=== PATIENT | male | born 1975 | race Caucasian/White ===

== ENCOUNTER 2019-10-25 19:02 | Emergency (ER) | payer BC, SELFPAY ==
--- NOTE | 2019-10-25 19:13 | ED.UPPEXIN ---
HPI - Extremity Injury (Upper) General Chief Complaint: Extremity Injury, Upper Stated Complaint: right middle finger injury Time Seen by Provider: 10/25/19 19:14 Source: patient and RN notes reviewed History of Present Illness HPI narrative: Patient is a 44-year-old male that presents the urgent care with complaints of a laceration to the right middle finger. Patient states that he reached out onto a drawer and sliced it on a shaving razor. Patient states that occurred approximately 30 minutes prior to arrival and he was unable to get the bleeding to stop. Patient is up-to-date on his tetanus shot. No other acute complaints. No acute distress noted. Patient read the plan of care. Related Data Allergies Allergy/AdvReac Type Severity Reaction Status Date / Time No Known Allergies Allergy Verified 10/25/19 19:20 Review of Systems Review of Systems: Narrative: CONSTITUTIONAL: Denies fever, chills, or sweats. EYES: Denies visual changes, redness, or discharge. ENT: Denies rhinorrhea, congestion, sore throat, or otalgia. CARDIOVASCULAR: Denies chest pain, palpitations, or edema. RESPIRATORY: Denies cough or dyspnea. GASTROINTESTINAL: Denies abdominal pain, nausea, vomiting, or diarrhea. GENITOURINARY: Denies dysuria or hematuria. SKIN: Reports of a laceration to the right middle finger MUSCULOSKELETAL: Denies back pain, joint pain, or myalgia. NEUROLOGIC: Denies headache, numbness, or weakness. All other systems reviewed are negative, except as documented in HPI. PMFSH Comments At the time of my signature, I reviewed and agree with the nursing past medical, surgical, social, and family history. There is no relevant family history pertinent to the patient complaint. Exam Narrative: Exam Narrative: GENERAL: This is a well-nourished, well-developed patient, in no apparent distress. HEAD: normocephalic, atraumatic. EYES: PERRL. Sclera clear/white. Vision is grossly intact. EARS: External ears normal NOSE: External nose normal with no obvious nasal discharge THROAT: Mucous membranes moist NECK: Neck supple SKIN: Approximately 1 cm diameter circular avulsion to the ulnar tip of the right middle finger without nail involvement NEURO: awake, alert, and oriented to person, place and time. There were no obvious focal neurologic abnormalities. EXTREMITIES: Right upper extremity capillary refill less than 2 seconds with range of motion within normal limits. Positive strong right radial pulse Course Vital Signs Vital signs: Vital Signs Temperature 97.8 F 10/25/19 19:22 Pulse Rate 66 10/25/19 19:22 Respiratory Rate 18 10/25/19 19:22 Blood Pressure 124/74 10/25/19 19:22 Pulse Oximetry 98 10/25/19 19:22 Temperature 97.8 F 10/25/19 19:22 Pulse Rate 66 10/25/19 19:22 Respiratory Rate 18 10/25/19 19:22 Blood Pressure 124/74 10/25/19 19:22 Pulse Oximetry 98 10/25/19 19:22 Reviewed Procedures Laceration Laceration 1: Site: upper extremity (Right middle digit) Side (If applicable): right Description: other (Circular avulsion) ====== Skin Level ====== Skin layer closed with: other (Surgery gel) ====== Subcutaneous Layer ====== ====== Muscle Layer ====== ====== Tendon Layer ====== Dressin cm diameter avulsion to the ulnar tip of the right middle finger without nail involvement. Unable to suture due to type of injury, missing skin layer. Used Surgicel to control the bleeding. Bleeding controlled with Surgicel. Patient tolerated well. Cleansed with soak of Technicare and normal saline prior to surgery gel placement. Telfa and tube gauze placed over the right middle finger. Patient tolerated well. MDM - Extremity Injury (Upper) MDM Narrative Medical decision making narrative: Advised the patient not to remove the tube gauze or Surgicel before the 2 to 3-day peroid. Surgery gel needs to be soaked off within 2 to 3 days. Clot should be formed a
[2019-10-25 19:22] VITALS: BP 124/74; PULSE 66; RESP 18; TEMP 36.6; O2SAT 98
== END 2019-10-25 19:50 | disposition home or self-care (01) ==
PROVIDERS: Emergency Provider Nurse Practitioner Family
DX: S61.212A Laceration without foreign body of right middle finger without damage to nail, initial encounter (principal); W26.8XXA Contact with other sharp object(s), not elsewhere classified, initial encounter
CPT/HCPCS: 12001; 99212; G0463

== ENCOUNTER 2021-02-07 11:03 | Observation (INO) | payer BC, SELFPAY ==
--- NOTE | ~2021-02-07 | XR_ITS ---
EXAMINATION: [id number] INDICATION: Right rib swelling TECHNIQUE: A frontal view of the chest and 3 views of the right ribs were obtained on five radiograph s. COMPARISON: None. FINDINGS: The lungs are free of acute opacities. There is no pleural effusion or pneumothorax. The ca rdiomediastinal silhouette is normal. The visualized bones and soft tissues are unremarkable. No disp laced rib fracture is identified. IMPRESSION: 1. No acute cardiopulmonary abnormality or evidence of displaced rib fracture. Reviewed, dictated and finalized at location A.
--- NOTE | ~2021-02-07 | US_ITS ---
EXAMINATION: US soft tissue abdomen DATE: 02/08/2021 10:21 INDICATION: Right flank swelling TECHNIQUE: Multiple grayscale and Doppler ultrasound images of the region of concern at the right fla nk were obtained. COMPARISON: None FINDINGS: Subtle flattened ovoid mass in the deep subcutaneous tissues at the region of concern which measures approximately 6.9 x 6.4 x 1.6 cm and with similar echogenicity and internal echogenic linear striatio ns at the surrounding subcutaneous fat. No other abnormal masses or fluid collections identified. IMPRESSION: 1. 6.9 x 6.4 x 1.6 cm and ovoid mass in the deep subcutaneous tissues at the region of concern with a ppearance consistent with and statistically most likely to represent a lipoma. If clinically indicate d CT or MRI could be obtained for confirmation. Reviewed, dictated and finalized at location A. IMPRESSION: 1. 6.9 x 6.4 x 1.6 cm and ovoid mass in the deep subcutaneous tissues at the re gion of concern with appearance consistent with and statistically most likely t o represent a lipoma. If clinically indicated CT or MRI could be obtained for c onfirmation.
[2021-02-07 11:12] VITALS: BP 145/95; PULSE 62; RESP 16; TEMP 35.7; O2SAT 99
[2021-02-07 12:30] LABS: Add Urine Microscopic? NO; Appearance Urine Clear (Clear); Basophils Absolute Auto 0.1 K/mm3 (0.0-0.1); Basophils Percent Auto 0.8 % (0.2-1.2); Bilirubin Urine Negative (Negative); Blood Urine Negative (Negative); Color Urine Straw (Yellow); Eosinophils Absolute Auto 0.1 K/mm3 (0-0.3); Eosinophils Percent Auto 0.7 % (0-4.4); Glucose Urine UA Negative (Negative); Hematocrit 44.1 % (42.0-52.0); Hemoglobin 15.4 g/dL (14.0-18.0); Immature Granulocyte Absolute 0.02 K/mm3 (0.00-0.031); Immature Granulocyte Percent A 0.3 % (0-0.5); Ketones Urine Negative (Negative); Leukocyte Esterase Ur Negative LEU/UL (Negative); Lymphocytes Absolute Auto 2.58 K/mm3 (0.9-3.2); Lymphocytes Percent Auto 35.1 % (18.3-44.2); Mean Corpuscular HGB Conc 34.9 g/dl (32-36); Mean Corpuscular Hemoglobin 30.4 pg (26-34); Mean Platelet Volume 10.1 fl (7.4-10.4); Monocytes Absolute Auto 0.6 K/mm3 (0.1-0.6); Monocytes Percent Auto 7.6 % (2.6-8.5); Neutrophils Absolute Auto 4.1 K/mm3 (1.3-6.7); Neutrophils Percent Auto 55.5 % (45.5-73.1); Nitrate Urine Negative (Negative); Platelet Count Result 241 k/mm3 (150-375); Protein Urine Negative (Negative); Red Blood Count 5.07 M/mm3 (4.6-6.20); Red Cell Distribution Width 12.4 % (11.5-14.5); Specific Grav Ur 1.011 (1.001-1.035); Urobilinogen Urine Negative mg/dL (<2.0); White Blood Count 7.4 K/mm3 (4.5-10.0)
--- NOTE | 2021-02-07 12:37 | ED.GENADULT ---
HPI - General Adult General Chief complaint: Back Pain/Injury Stated complaint: back pain Time Seen by Provider: 02/07/21 11:42 Source: patient and RN notes reviewed Mode of arrival: ambulatory Limitations: no limitations History of Present Illness HPI narrative: This is 45 year old male who presents for evaluation of bilateral arm pain. He states that he just started lifting weights on Thursday, and he noticed that he has had bilateral bicep soreness since Thursday. He has pain with extension of his arms. He takes ibuprofen daily for his body aches. He also noticed lump to his right flank on Thursday but he states it is not painful. He denies nausea, vomiting, fever, chills, shortness of breath. He has not noticed that his urine is darker than normal. Related Data Home Medications Medication Instructions Recorded Confirmed No Home Medications 02/07/21 02/07/21 Allergies Allergy/AdvReac Type Severity Reaction Status Date / Time No Known Allergies Allergy Verified 10/25/19 19:20 Review of Systems Review of Systems: All systems reviewed & are unremarkable except as noted in HPI and below PMFSH Past Medical History Medical History (Updated 02/07/21 @ 14:33 by Nellie Frye PA-C) Patient denies medical problems Surgical History Surgical History No pertinent past surgical history Family History Family History Other No significant family history Social History Social History (Updated 02/07/21 @ 14:30 by Nellie Frye PA-C) Social History: The patient lives in [place] with his , son, and his mother. 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 Consumes alcohol socially and in moderation. No illicit substance use. He designates his is his surrogate decision-maker. CODE STATUS: Full code. Smoking status: Never smoker Alcohol intake: never Substance use: never Spiritual care concerns: No Exam Const: General: no acute distress and alert Orientation/consciousness: patient oriented x3 Eyes: EOM: EOMs intact bilaterally Resp: Effort & Inspection: normal respiratory effort and no retractions Auscultation: clear to auscultation bilaterally Cardio: Rate: regular rate Rhythm: regular rhythm Heart sounds: no murmurs GI: GI Palp: Yes Soft to palpation, No Tenderness to palpation present (GI) and No Guarding due to palpation present (GI) Auscultation: normal bowel sounds Back/Spine/Pelvis: Other: right mid lateral back with lump that is firm, no tenderness, no fluctuance, no erythema. Skin: General skin exam: normal color Neuro: General: patient oriented x3, moves all extremities and CN's II-XI intact bilaterally Extrem: Other: pain with extension of bilateral arms at biceps. no swelling, no erythema, strong bilateral radial pulses. Psych: Mental Status: mental status grossly normal Affect: normal affect Course Reevaluation(s) Reevaluation #1: I have discussed with patient that he will need to be admitted for IV hydration for his rhabdomyolysis. Date: 02/07/21 Time: 13:34 Consultations Consultation #1: Nellie Melva accepts patient to hospitalist service. Date: 02/07/21 Time: 13:34 Vital Signs Vital signs: Vital Signs Temperature 96.3 F L 02/07/21 11:12 Pulse Rate 62 02/07/21 11:12 Respiratory Rate 16 02/07/21 11:12 Blood Pressure 145/95 H 02/07/21 11:12 Pulse Oximetry 99 02/07/21 11:12 Temperature 96.9 F L 02/07/21 20:20 Pulse Rate 65 02/07/21 20:20 Respiratory Rate 16 02/07/21 20:20 Blood Pressure 133/70 02/07/21 20:20 Pulse Oximetry 96 02/07/21 20:20 Medical Decision Making Vital Signs Vital Signs: Vital Signs Temperature 96.3 F L 02/07/21 11:12 Pulse Rate 62 02/07/21 11:12 Respiratory Rate 16 02/07/21 11:12 Blood Pressure 145/95 H
[2021-02-07 12:41] LABS: Alanine Aminotransferase 46 U/L (4-50); Albumin Level 4.5 g/dL (3.5-5.1); Alkaline Phosphatase 55 U/L (38-126); Anion Gap 6 mmol/L (8-16); Aspartate Amino Transferase 153 U/L (17-59); Bilirubin,Total 0.6 mg/dL (0.2-1.3); Blood Urea Nitrogen 15 mg/dL (9-20); Carbon Dioxide 29 mmol/L (22-30); Chloride 102 mmol/L (98-107); Estimated CRCL calculation 130 ml/min; Estimated Glomerular Filt Rate > 60; Glucose 91 mg/dL (65-110); Potassium 4.4 mmol/L (3.4-5.0); Sodium 137 mmol/L (137-145)
[2021-02-07 13:02] LABS: Creatine Kinase 9163 U/L (55-170)
--- NOTE | 2021-02-07 13:45 | PM.IMHP ---
H&P: HPI History of Present Illness Date/Time: 02/07/21 13:45 Chief Complaint: Lump on right side. Narrative: This is a previously healthy 45-year-old male who presented to the emergency department earlier today via private vehicle from home for evaluation of a lump that he noticed on the right flank/back. He began a new weightlifting regimen on Thursday and noticed that his biceps were extremely sore on Thursday to the point where he was having difficulties extending his arms out due to the discomfort. On Thursday he also noticed a lump on the right flank/back though that has not necessarily been painful. He has been taking ibuprofen daily for the aches with some benefit. In the emergency department today he was found to have a CK of greater than 9000 and he is being admitted in this setting for further treatment of rhabdomyolysis. He denies lightheadedness, dizziness, and decrease in urine output. He has not noticed any bruising around the lump in the right flank/back region. No focal weakness or paresthesias. Review of Systems Review of Systems: 12 systems were reviewed with pertinent positives and negatives as per HPI. No fever, chills, sweats. No syncope or near syncope. He denies recent cold or flu symptoms. No exposure to those positive for COVID-19. He denies chest pain shortness of breath. No nausea, vomiting, or diarrhea. No dysuria, hematuria, or change in urine color except as documented, all other systems were reviewed and are negative. [facility] Past Medical History Medical History (Updated 02/07/21 @ 14:33 by Nellie Frye PA-C) Patient denies medical problems Surgical History Surgical History No pertinent past surgical history Family History Family History (Updated 02/07/21 @ 14:30 by Nellie Frye PA-C) Other No significant family history Social History Social History (Updated 02/07/21 @ 14:30 by Nellie Frye PA-C) Social History: The patient lives in [place] with his , son, and his mother. 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 Consumes alcohol socially and in moderation. No illicit substance use. He designates his is his surrogate decision-maker. CODE STATUS: Full code. Meds Home Medications and Allergies Allergies Allergy/AdvReac Type Severity Reaction Status Date / Time No Known Allergies Allergy Verified 10/25/19 19:20 Vital Signs Vital Signs - 24 hr 02/07/21 11:12 Temperature 96.3 F L Pulse Rate 62 Respiratory Rate 16 Blood Pressure 145/95 H Pulse Oximetry 99 Exam Narrative: General: Well-developed male sitting up in bed no distress. Weight: 117.9 kg. BMI: 31.6 HEENT: Normocephalic, atraumatic. PERRL, EOMI. Sclerae anicteric. Oral mucosa moist. Neck: Supple. Respiratory: Lungs are clear to auscultation bilaterally. Cardiovascular: Regular rate and rhythm with S1-S2. Occasional ectopy Gastrointestinal: Abdomen is soft, nontender, and nondistended with positive bowel sounds. Skin: Warm and dry. No rash or lesions on limited exam. Extremities: No cyanosis, clubbing, or edema. Radial and pedal pulses intact. Musculoskeletal: No tenderness to palpation of the upper extremities. He does complain of some mild discomfort when extending the arms at the bicep. There is swelling over the right latissimus dorsi just under the scapula without bruising or discomfort on palpation. Neurological: Alert. Cranial nerves 2-12 are grossly intact. No gross focal deficits to casual conversation. Psychiatric: Pleasant and cooperative with normal mood and affect. Judgment and insight intact. H&P: Results Labs Labs: Short CBC 02/07/21 Range/Units 12:19 WBC 7.4 (4.5-10.0) K/mm3 Hgb 15.4 (14.0-18.0) g/dL Hct 44.1 (42.0-52.0) % Plt Count 241 (150-375) k/mm3 [facility] 02/07/21 12:19 Sodium 137 Potassium 4.4 Chloride 102 Carbon Dioxide 29
[2021-02-07] MEDS: SODIUM CHLORIDE 0.9% IV 1,000 ML 999 ML IV CONT ×2 (14:04)
[2021-02-07 14:38] VITALS: BP 134/88; PULSE 55; RESP 20; TEMP 35.7; O2SAT 100
[2021-02-07] MEDS: SODIUM CHLORIDE 0.9% IV 1,000 ML 200 ML IV CONT ×2 (15:36→20:21)
[2021-02-07 20:20] VITALS: BP 133/70; PULSE 65; RESP 16; TEMP 36.1; O2SAT 96
[2021-02-07 21:02] LABS: Creatine Kinase 9668 U/L (55-170)
[2021-02-08] MEDS: SODIUM CHLORIDE 0.9% IV 1,000 ML 200 ML IV CONT ×5 (01:19→22:40)
[2021-02-08 05:51] VITALS: BP 132/92; PULSE 54; RESP 16; TEMP 35.8; O2SAT 97
[2021-02-08 07:00] LABS: Alanine Aminotransferase 42 U/L (4-50); Albumin Level 3.4 g/dL (3.5-5.1); Alkaline Phosphatase 48 U/L (38-126); Anion Gap 4 mmol/L (8-16); Aspartate Amino Transferase 130 U/L (17-59); Bilirubin,Total 0.3 mg/dL (0.2-1.3); Blood Urea Nitrogen 10 mg/dL (9-20); Carbon Dioxide 26 mmol/L (22-30); Chloride 105 mmol/L (98-107); Estimated CRCL calculation 145 ml/min; Estimated Glomerular Filt Rate > 60; Glucose 85 mg/dL (65-110); Potassium 4.6 mmol/L (3.4-5.0); Sodium 135 mmol/L (137-145)
[2021-02-08 07:27] LABS: Creatine Kinase 8044 U/L (55-170)
[2021-02-08 08:00] VITALS: PULSE 54; RESP 16; O2SAT 97
[2021-02-08 14:27] VITALS: BP 120/88; PULSE 65; RESP 18; TEMP 35.9; O2SAT 98
--- NOTE | 2021-02-08 16:28 | PM.IMPN ---
Progress Note: A&P Assessment and Plan (1) Rhabdomyolysis: Code(s): M62.82 - Rhabdomyolysis Status: Acute Assessment and Plan: Related to exertion after starting a new weightlifting regimen earlier this week. Continue aggressive IV fluid rehydration. Trend CK. 02/08 patient with rhabdomyolysis upon arrival his CK levels were 9000 and this morning is 8000 patient being hydrated, his kidney function remains stable, patient states the muscle pain is improving, patient also has developed a lump on his right upper back ultrasound showed most likely lipoma. patient denies any abdominal pain nausea or vomiting fever or chills, patient instructed to activity as tolerated, will continue to hydrate the patient and monitor CK level. (2) Elevated blood pressure reading: Code(s): R03.0 - Elevated blood-pressure reading, without diagnosis of hypertension Status: Acute Assessment and Plan: BP on arrival to the emergency department was 145/95. Continue to monitor for now to see if this is a trend or isolated. (3) Strain of latissimus dorsi muscle: Code(s): S29.012A - Strain of muscle and tendon of back wall of thorax, initial encounter Status: Acute Assessment and Plan: No pain or bruising noted to the area. Discussed the need for rest until this muscle is healed. Subjective Date/time seen: 02/08/21 16:28 Chief Complaint: Lump on right side. Narrative: This is a previously healthy 45-year-old male who presented to the emergency department earlier today via private vehicle from home for evaluation of a lump that he noticed on the right flank/back. He began a new weightlifting regimen on Thursday and noticed that his biceps were extremely sore on Thursday to the point where he was having difficulties extending his arms out due to the discomfort. On Thursday he also noticed a lump on the right flank/back though that has not necessarily been painful. He has been taking ibuprofen daily for the aches with some benefit. In the emergency department today he was found to have a CK of greater than 9000 and he is being admitted in this setting for further treatment of rhabdomyolysis. He denies lightheadedness, dizziness, and decrease in urine output. He has not noticed any bruising around the lump in the right flank/back region. No focal weakness or paresthesias. 02/08 patient with rhabdomyolysis upon arrival his CK levels were 9000 and this morning is 8000 patient being hydrated, his kidney function remains stable, patient states the muscle pain is improving, patient also has developed a lump on his right upper back ultrasound showed most likely lipoma. patient denies any abdominal pain nausea or vomiting fever or chills, patient instructed to activity as tolerated, will continue to hydrate the patient and monitor CK level. Review of Systems Review of Systems: All systems reviewed & are unremarkable except as noted in HPI and below Exam Narrative: Patient is comfortable, NAD HEENT: eyes are clear and none icteric LUNGS:CTA HEART: RR S1S2 ABD: BS+, Soft and nontender Lower extremities: no edema SKIN: nonjaundiced, right upper back about 4-5 cm soft lump, moveable, no erythema or tenderness Neuro: grossly intact. Objective Data Vital Signs Vital Signs: Vital Signs - 24 hr 02/07/21 20:20 02/08/21 05:51 02/08/21 08:00 Temperature 96.9 F L 96.4 F L Pulse Rate 65 54 L 54 L Respiratory Rate 16 16 16 Blood Pressure 133/70 132/92 H Pulse Oximetry 96 97 97 02/08/21 14:27 Temperature 96.6 F L Pulse Rate 65 Respiratory Rate 18 Blood Pressure 120/88 Pulse Oximetry 98 Intake/Output Intake/Output: Intake & Output 02/05/21 02/06/21 02/07/21 02/08/21 23:59 23:59 23:59 23:59 Intake Total 3790 3480 Output Total 300 1850 Balance 3490 1630 Meds/Results Medications: Active Medications Generic Name Dose Route Start Last Admin Trade Name Freq PRN Reason Sto
[2021-02-08 22:00] VITALS: BP 149/85; PULSE 66; RESP 20; TEMP 36.7; O2SAT 98
[2021-02-09] MEDS: SODIUM CHLORIDE 0.9% IV 1,000 ML 200 ML IV CONT ×4 (04:32→19:00)
[2021-02-09 06:00] VITALS: BP 129/82; PULSE 62; RESP 18; TEMP 36.1; O2SAT 97
[2021-02-09 06:27] LABS: Alanine Aminotransferase 53 U/L (4-50); Albumin Level 3.3 g/dL (3.5-5.1); Alkaline Phosphatase 43 U/L (38-126); Anion Gap 5 mmol/L (8-16); Aspartate Amino Transferase 135 U/L (17-59); Bilirubin,Total 0.2 mg/dL (0.2-1.3); Blood Urea Nitrogen 8 mg/dL (9-20); Calcium 7.9 mg/dL (8.4-10.2); Carbon Dioxide 24 mmol/L (22-30); Chloride 106 mmol/L (98-107); Estimated CRCL calculation 165 ml/min; Estimated Glomerular Filt Rate > 60; Glucose 93 mg/dL (65-110); Potassium 4.1 mmol/L (3.4-5.0); Sodium 135 mmol/L (137-145)
[2021-02-09 07:28] LABS: Creatine Kinase 6683 U/L (55-170)
[2021-02-09 11:18] VITALS: O2SAT 96
--- NOTE | 2021-02-09 13:11 | PM.IMPN ---
Progress Note: A&P Assessment and Plan (1) Rhabdomyolysis: Code(s): M62.82 - Rhabdomyolysis Status: Acute Assessment and Plan: Related to exertion after starting a new weightlifting regimen earlier this week. Continue aggressive IV fluid rehydration. Trend CK. 02/08 patient with rhabdomyolysis upon arrival his CK levels were 9000 and this morning is 8000 patient being hydrated, his kidney function remains stable, patient states the muscle pain is improving, patient also has developed a lump on his right upper back ultrasound showed most likely lipoma. patient denies any abdominal pain nausea or vomiting fever or chills, patient instructed to activity as tolerated, will continue to hydrate the patient and monitor CK level. 02/09 CK 6683. Likely home 02/10. (2) Elevated blood pressure reading: Code(s): R03.0 - Elevated blood-pressure reading, without diagnosis of hypertension Status: Acute Assessment and Plan: BP on arrival to the emergency department was 145/95. 02/09 129/82 Continue to monitor. (3) Strain of latissimus dorsi muscle: Code(s): S29.012A - Strain of muscle and tendon of back wall of thorax, initial encounter Status: Acute Assessment and Plan: No pain or bruising noted to the area. Rest until this muscle is healed. Subjective Date/time seen: 02/09/21 13:11 Interval history: Admitted 02/08 with mickie after starting new weight training regimen. 02/09 visit: Denied muscle pain, chest pain, sob, gi/gu issues. Wants to go home. Review of Systems Review of Systems: All systems reviewed & are unremarkable except as noted in HPI and below Exam Narrative: Patient is comfortable, NAD HEENT: eyes are clear and none icteric LUNGS:CTA HEART: RR S1S2 ABD: BS+, Soft and nontender Lower extremities: no edema SKIN: nonjaundiced, right upper back about 4-5 cm soft lump, moveable, no erythema or tenderness Neuro: grossly intact. Objective Data Vital Signs Vital Signs: Vital Signs - 24 hr 02/08/21 14:27 02/08/21 22:00 02/09/21 06:00 Temperature 96.6 F L 98.0 F 96.9 F L Pulse Rate 65 66 62 Respiratory Rate 18 20 18 Blood Pressure 120/88 149/85 H 129/82 Pulse Oximetry 98 98 97 02/09/21 11:18 Temperature Pulse Rate Respiratory Rate Blood Pressure Pulse Oximetry 96 Intake/Output Intake/Output: Intake & Output 02/06/21 02/07/21 02/08/21 02/09/21 23:59 23:59 23:59 23:59 Intake Total 3790 6270 3580 Output Total 300 1850 1400 Balance 3490 4420 2180 Meds/Results Medications: Active Medications Generic Name Dose Route Start Last Admin Trade Name Freq PRN Reason Stop Dose Admin Sodium Chloride 1,000 mls @ 200 mls/hr 02/07/21 13:30 02/09/21 08:50 Normal Saline Iv IV CONT 200 mls/hr .Q5H LASHELL Administration Ondansetron HCl 4 mg 02/07/21 13:28 Ondansetron Inj 4 Mg/2 Ml Vial IV PUSH Q4H PRN Nausea Radiology Results: ITS Impressions Ribs w/Chest X-Ray 02/07/21 13:15 IMPRESSION: 1. No acute cardiopulmonary abnormality or evidence of displaced rib fracture. Soft Tissue Ultrasound 02/08/21 12:41 IMPRESSION: 1. 6.9 x 6.4 x 1.6 cm and ovoid mass in the deep subcutaneous tissues at the region of concern with appearance consistent with and statistically most likely to represent a lipoma. If clinically indicated CT or MRI could be obtained for confirmation. Labs Labs: Laboratory Results - last 24 hr 02/09/21 06:04 Sodium 135 L Potassium 4.1 Chloride 106 Carbon Dioxide 24 Anion Gap 5 L BUN 8 L Creatinine 0.70 Estim Creat Clear Calc 165 Estimated GFR > 60 Glucose 93 Calcium 7.9 L Total Bilirubin 0.2 AST 135 H ALT 53 H Alkaline Phosphatase 43 Total Creatine Kinase 6683 H Total Protein 6.0 L Albumin 3.3 L Quality VTE Prophylaxis VTE prophylaxis: mechanical ordered
[2021-02-09 14:00] VITALS: BP 144/88; PULSE 62; RESP 20; TEMP 36.7; O2SAT 98
[2021-02-09 20:00] VITALS: PULSE 62; RESP 20; O2SAT 98
[2021-02-09 21:04] VITALS: BP 139/83; PULSE 59; RESP 16; TEMP 36.7; O2SAT 98
[2021-02-09] MEDS: ACETAMINOPHEN 325 MG TABLET 650 MG PO (21:51)
[2021-02-10] MEDS: SODIUM CHLORIDE 0.9% IV 1,000 ML 200 ML IV CONT ×2 (05:13)
[2021-02-10 05:17] VITALS: BP 120/80; PULSE 51; RESP 16; TEMP 35.8; O2SAT 96
[2021-02-10 07:27] LABS: Alanine Aminotransferase 55 U/L (4-50); Albumin Level 3.4 g/dL (3.5-5.1); Alkaline Phosphatase 45 U/L (38-126); Anion Gap 4 mmol/L (8-16); Aspartate Amino Transferase 91 U/L (17-59); Bilirubin,Total 0.5 mg/dL (0.2-1.3); Blood Urea Nitrogen 10 mg/dL (9-20); Calcium 8.3 mg/dL (8.4-10.2); Carbon Dioxide 25 mmol/L (22-30); Chloride 109 mmol/L (98-107); Creatine Kinase 3141 U/L (55-170); Estimated CRCL calculation 130 ml/min; Estimated Glomerular Filt Rate > 60; Glucose 84 mg/dL (65-110); Potassium 4.4 mmol/L (3.4-5.0); Sodium 138 mmol/L (137-145)
[2021-02-10 07:50] LABS: Hepatitis B Surface Antigen Negative (Negative)
[2021-02-10 07:56] LABS: HAV RESULT Negative (Negative); Hepatitis B Core IgM Result Negative (Negative)
--- NOTE | 2021-02-10 09:16 | PM.DS ---
DS: Admitting Diagnosis Admitting Diagnosis rhabdomyolysis DS: Discharge Diagnosis Discharge Diagnosis (1) Rhabdomyolysis: Code(s): M62.82 - Rhabdomyolysis Status: Acute Assessment and Plan: Related to exertion after starting a new weightlifting regimen earlier this week. Continue aggressive IV fluid rehydration. Trend CK. 02/08 patient with rhabdomyolysis upon arrival his CK levels were 9000 and this morning is 8000 patient being hydrated, his kidney function remains stable, patient states the muscle pain is improving, patient also has developed a lump on his right upper back ultrasound showed most likely lipoma. patient denies any abdominal pain nausea or vomiting fever or chills, patient instructed to activity as tolerated, will continue to hydrate the patient and monitor CK level. 02/09 CK 6683. Likely home 02/10. 02/10 CK 3141 w/o sx's. Home. (2) Elevated blood pressure reading: Code(s): R03.0 - Elevated blood-pressure reading, without diagnosis of hypertension Status: Acute Assessment and Plan: BP on arrival to the emergency department was 145/95. 02/09 129/82 Continue to monitor. (3) Strain of latissimus dorsi muscle: Code(s): S29.012A - Strain of muscle and tendon of back wall of thorax, initial encounter Status: Acute Assessment and Plan: No pain or bruising noted to the area. Rest until this muscle is healed. DS: Summary Hospital Course Reason for hospitalization: rhabdomyolysis Hospital Course: Admitted with muscle soreness. CK elevated. LFT's also increased. Sx's resolved and CK improved with iVF and rest. Hepatitis screen negative. Status at Discharge Functional status at discharge: independent ambulation Overall status at discharge: patient is progressing back to baseline Time Spent with Patient Time attestation: Total time spent providing and/or coordinating discharge services: Exam Narrative: Patient is comfortable, NAD HEENT: eyes are clear and none icteric LUNGS:CTA HEART: RR S1S2 ABD: BS+, Soft and nontender Lower extremities: no edema SKIN: nonjaundiced, right upper back about 4-5 cm soft lump, moveable, no erythema or tenderness Neuro: grossly intact. DS: Data Data Completed and Pending Labs on day of discharge: Labs from last 24 hours 02/10/21 02/10/21 06:45 06:45 Sodium 138 Potassium 4.4 Chloride 109 H Carbon Dioxide 25 Anion Gap 4 L BUN 10 Creatinine 0.90 Estim Creat Clear Calc 130 Estimated GFR > 60 Glucose 84 Calcium 8.3 L Total Bilirubin 0.5 AST 91 H ALT 55 H Alkaline Phosphatase 45 Total Creatine Kinase 3141 H Total Protein 6.0 L Albumin 3.4 L Hepatitis A IgM Ab Negative Hep Bs Antigen Negative Hep B Core IgM Ab Negative Discharge Plan Discharge Discharging Clinician: Bharathi Sarkar Patient Disposition: Home, Self-Care Activity: no straining Diet: regular Discharge Instructions: Do only walking and gentle stretching for exercise until released by PCP. Do not drink alcohol until released by PCP. Patient Instructions: Pain Management (DC) Stand Alone Forms: General Discharge Information Follow-up/Referrals: Ramon,Rah Koch MD [Primary Care Provider] - 1 Week Discharge Medications: New acetaminophen [Mapap (acetaminophen)] 325 mg Tablet 650 mg PO Q6H PRN (Reason: Mild Pain (1-3) Or Fever) Qty: 0 RF: 0 No Action No Home Medications RF: 0 Other Ambulatory Orders: Creatine Kinase (Routine) Timeframe: 2 Days Location: Determined by Patient Ordered By: Bharathi Sarkar Comprehensive Metabolic Panel (Routine) Timeframe: 2 Days Location: Determined by Patient Ordered By: Bharathi Sarkar Date of admission: 02/07/21 13:28 Primary Care Provider: Ramon,Rah Koch Admitting Provider: Raquel Ga Attending physician on admission: Raquel Ga Condition: Stable
== END 2021-02-10 09:45 | disposition home or self-care (01) ==
LOC: ANHED 13:35 → ANH3MED 19:33
PROVIDERS: Family Medicine; Physician Assistant; Admitting Provider Internal Medicine; Emergency Provider General Practice; PCP Family Medicine; Visit Provider Internal Medicine
DX: M62.82 Rhabdomyolysis (principal); R03.0 Elevated blood-pressure reading, without diagnosis of hypertension; S29.012A Strain of muscle and tendon of back wall of thorax, initial encounter; R22.2 Localized swelling, mass and lump, trunk; X50.0XXA Overexertion from strenuous movement or load, initial encounter; Y93.B9 Activity, other involving muscle strengthening exercises
CPT/HCPCS: 36415; 71101; 76705; 80053; 81003; 82550; 85025; 86705; 86709; 87340; 96360; 96361; 99285; A9270; G0378; J7030

== ENCOUNTER 2021-02-12 11:36 | Outpatient (CLI) | payer BC, SELFPAY ==
[2021-02-12 12:07] LABS: Alanine Aminotransferase 55 U/L (4-50); Albumin Level 4.2 g/dL (3.5-5.1); Alkaline Phosphatase 49 U/L (38-126); Anion Gap 6 mmol/L (8-16); Aspartate Amino Transferase 58 U/L (17-59); Bilirubin,Total 0.7 mg/dL (0.2-1.3); Blood Urea Nitrogen 12 mg/dL (9-20); Calcium 9.1 mg/dL (8.4-10.2); Carbon Dioxide 29 mmol/L (22-30); Chloride 104 mmol/L (98-107); Creatine Kinase 901 U/L (55-170); Estimated Glomerular Filt Rate > 60; Glucose 84 mg/dL (65-110); Sodium 139 mmol/L (137-145)
== END 2021-02-12 11:37 | disposition home or self-care (01) ==
PROVIDERS: PCP Family Medicine; Referring Provider Family Medicine; Visit Provider Internal Medicine
DX: M62.82 Rhabdomyolysis (principal)
CPT/HCPCS: 36415; 80053; 82550